=== PATIENT | male | born 1990 | race Caucasian/White ===

== ENCOUNTER 2017-05-27 05:49 | Emergency (ER) | payer BC ==
[~2017-05-27] VITALS: Ht 185.4 cm; Wt 75.9 kg
[~2017-05-27 05:49] MED LIST: CLEOCIN300 MG PO; NOHOMEMEDS; VICODIN 5-5001 EACH PO
[2017-05-27] MEDS ORDERED: DOXYCYCLINE HY100 MG PO (08:40)
[2017-05-27] MEDS ORDERED: FLAGYL500 MG PO (08:40)
[2017-05-27 08:51] VITALS: BP 134/80
== END 2017-05-27 08:52 | disposition home or self-care (01) ==
LOC: EME 05:49
DX: S01.25XA Open bite of nose, initial encounter (principal); W54.0XXA Bitten by dog, initial encounter; Y92.009 Unspecified place in unspecified non-institutional (private) residence as the place of occurrence of the external cause; Z90.5 Acquired absence of kidney; Z23 Encounter for immunization
CPT/HCPCS: 99281; 99284